=== PATIENT | female | born 1965 | race Caucasian/White ===

== ENCOUNTER 2017-09-03 11:39 | Emergency (ER) | payer MEDICAID ==
[~2017-09-03] VITALS: Ht 165.1 cm; Wt 77.3 kg
[2017-09-03 11:45] VITALS: Ht 165.1 cm; Wt 77.3 kg
[2017-09-03] MEDS ORDERED: ADDERALL 20 MG20 M1 PO (11:49)
[2017-09-03] MEDS ORDERED: ADDERALL 30 MG30 MG PO (11:49)
[2017-09-03] MEDS ORDERED: ZANTAC150 MG PO (11:49)
[2017-09-03] MEDS ORDERED: LIPITOR40 MG PO (11:49)
[2017-09-03] MEDS ORDERED: REXULTI1 MG PO (11:50)
[2017-09-03] MEDS ORDERED: COZAAR50 MG PO (11:51)
[2017-09-03] MEDS ORDERED: COREG25 MG PO (11:51)
[2017-09-03] MEDS ORDERED: GLUCOPHAGE500 MG PO (11:51)
[2017-09-03 12:23] LABS: BASOPHILS 0.2 % (0-2); EOSINOPHILS 1.9 % (0-7); HEMATOCRIT 36.8 % (36.0-48.0); HEMOGLOBIN 12.4 g/dL (12-16); IMMATURE GRANULOCYTES 0.3 % (0-5); LYMPHOCYTES 26.5 % (15-50); MCH 30.8 pg (26.0-34.0); MCHC 33.7 g/dL (31.0-37.0); MCV 91.5 fL (80.0-100.0); MEAN PLATELET VOLUME 9.4 fL (7.4-10.4); MONOCYTES 7.6 % (2-11); NEUTROPHILS 63.5 % (40-80); PLATELET COUNT 297 10x3/uL (130-400); RBC 4.02 10x6/uL (4.00-5.40); RDW 12.9 % (11.5-14.5); WBC 14.4 10x3/uL (4.8-10.8)
[2017-09-03 12:32] LABS: APPEARANCE HAZY (CLEAR); BACTERIA FEW /hpf (NONE SEEN); BILIRUBIN NEGATIVE (NEGATIVE); COLOR YELLOW (YELLOW); GLUCOSE NEGATIVE (NEGATIVE); KETONE NEGATIVE (NEGATIVE); MUCUS >1+ /lpf (NONE SEEN); NITRITE NEGATIVE (NEGATIVE); PROTEIN NEGATIVE (NEGATIVE); RED CELLS - URINE 0-5 /hpf (0-5); SPECIFIC GRAVITY 1.015 (1.005-1.020); UROBILINOGEN NORMAL (NORMAL); WHITE CELLS - URINE 0-5 /hpf (0-5)
[2017-09-03 12:44] LABS: ALBUMIN 3.5 g/dL (3.4-5.0); ALKALINE PHOSPHATASE 76 U/L (46-116); ALT (SGPT) 28 U/L (10-68); BILIRUBIN - TOTAL 0.22 mg/dL (0.2-1.3); CALC OSMOLALITY 279 mosm/kg (275-300); CALCIUM 8.5 mg/dL (8.5-10.1); CARBON DIOXIDE 23.8 mmol/L (21.0-32.0); CHLORIDE - SERUM 107 mmol/L (98-107); CREATININE - SERUM 0.8 mg/dL (0.6-1.3); GLUCOSE 103 mg/dL (74-106); POTASSIUM - SERUM 3.5 mmol/L (3.5-5.1); PROTEIN - SERUM 7.5 g/dL (6.4-8.2); SODIUM 141 mmol/L (136-145); UREA NITROGEN 10 mg/dL (7-18); eGFR NON AFRICAN AMERICAN 79 mL/min (90-120)
[2017-09-03] MEDS ORDERED: ULTRAM50 MG PO (14:42)
[2017-09-03 15:40] VITALS: BP 113/71
== END 2017-09-03 15:41 | disposition home or self-care (01) ==
LOC: D.ER 11:39
PROVIDERS: Family Medicine
DX: R53.83 Other fatigue (principal); E11.9 Type 2 diabetes mellitus without complications; M79.1 Myalgia; I10 Essential (primary) hypertension